=== PATIENT | female | born 1945 | race Two or more races ===

== ENCOUNTER → 2024-05-03 | Outpatient (CLI) | payer MEDICARE, MEDICAID, SELFPAY ==
--- NOTE | 2024-05-03 12:30 | XR_ITS ---
EXAMINATION: PET/CT FUSION SKULL TO THIGH EXAM DATE AND TIME: May 03, 2024 1312 hours Comparison October 20, 2023 INDICATIONS: Diagnosis malignant neoplasm of bronchus or lung restaging post treatment CTDI:vol (mGy) 5.01 DLP: (mGycm) 395.05 PROCEDURE: 15.7 mCi FDG was administered intravenously To allow for distribution and uptake of radiotracer, the patient was allowed to rest quietly in a shielded room. Imaging was performed on an integrated 16-slice PET/CT scanner, with scanning from the skull base to the mid thigh. Serum blood glucose at the time of the injection was measured 85 mg/dL. CT scanning was performed without oral or intravenous contrast material. FINDINGS: Head and Neck: There is no delroy hypermetabolism in the neck. The visualized portions of the brain are normal in appearance on CT. Chest: Weakly hypermetabolic pulmonary nodule posterior right lung 36 x 26 mm compared to 34 x 19 mm on October 20, 2023 Abdomen and Pelvis: There is no delroy hypermetabolism in retroperitoneal or pelvic chains. The spleen is normal in size and FDG avidity. Musculoskeletal: Marrow uptake is within normal range. IMPRESSION: Interval enlargement of pulmonary nodule right lower lobe, currently 36 x 26 mm compared to 34 x 19 mm on October 20, 2023
== END | disposition home or self-care (01) ==
LOC: CDIM 11:50
PROVIDERS: PCP Family Medicine; Referring Provider Nurse Practitioner Family; Visit Provider Nurse Practitioner Family
DX: R91.1 Solitary pulmonary nodule (principal); C34.90 Malignant neoplasm of unspecified part of unspecified bronchus or lung
CPT/HCPCS: 78815; A9552

== ENCOUNTER → 2024-08-01 | Outpatient (CLI) | payer MEDICARE, MEDICAID, SELFPAY ==
--- NOTE | 2024-08-01 16:21 | XR_ITS ---
Examination: PA lateral chest 2 views TECHNIQUE: Upright PA lateral chest 2 views Exam date and time: August 01, 2024 1653 hours Comparison December 26, 2023 INDICATIONS: Difficulty breathing this week, diagnosis malignant neoplasm bronchus or lung restaging FINDINGS: Poorly defined mass in the posterior right lung, please see the PET/CT scan report May 03, 2024 indicating 36 mm pulmonary mass in the right lower lobe 13 mm nodule left base retrocardiac Mild prominence left ventricle Elevation left hemidiaphragm Possible mild to moderate posterior right pleural fluid IMPRESSION: Pulmonary masses as above Suspicious for mild to moderate right pleural fluid
== END | disposition home or self-care (01) ==
LOC: CDIM 16:10
PROVIDERS: PCP Nurse Practitioner Family; Referring Provider Thoracic Surgery (Cardiothoracic Vascular Surgery); Visit Provider Thoracic Surgery (Cardiothoracic Vascular Surgery)
DX: R91.8 Other nonspecific abnormal finding of lung field (principal); C34.90 Malignant neoplasm of unspecified part of unspecified bronchus or lung
CPT/HCPCS: 71046

== ENCOUNTER → 2024-09-21 | Outpatient (CLI) | payer MEDICARE, MEDICAID, SELFPAY ==
--- NOTE | 2024-09-21 | XR_ITS ---
Examination: PA lateral chest 2 views Technique: Upright PA lateral chest 2 views Exam date and time: September 21, 2024 1218 hrs. Comparison August 01, 2024 Indications: Coughing beginning one month ago. Findings: Mild prominence left ventricle Moderate right pleural fluid Mild pneumonia right base Impression: Moderate right pleural fluid Mild pneumonia right base
== END | disposition home or self-care (01) ==
LOC: CDIM 11:51
PROVIDERS: PCP Nurse Practitioner Family; Referring Provider Nurse Practitioner Family; Visit Provider Nurse Practitioner Family
DX: J18.9 Pneumonia, unspecified organism (principal); R05.3 Chronic cough
CPT/HCPCS: 71046

== ENCOUNTER → 2024-10-11 | Outpatient (CLI) | payer MEDICARE, MEDICAID, SELFPAY ==
--- NOTE | 2024-10-11 13:17 | XR_ITS ---
Examination: PA lateral chest 2 views TECHNIQUE: Upright PA lateral chest 2 views Exam date and time: October 11, 2024 1322 hours Comparison September 21, 2024 INDICATIONS: Status post surgery right lung October 15, 2024 with pneumonia right lung history FINDINGS: No significant cardiac enlargement Ectatic thoracic aorta Stable right pleural disease No definite pneumonia on the current examination IMPRESSION: Stable right pleural disease, no pneumonia currently identified
== END | disposition home or self-care (01) ==
PROVIDERS: PCP Nurse Practitioner Family; Referring Provider Nurse Practitioner Family; Visit Provider Nurse Practitioner Family
DX: R91.8 Other nonspecific abnormal finding of lung field (principal)
CPT/HCPCS: 71046

== ENCOUNTER 2025-01-08 08:48 | Outpatient (RCR) | payer MEDICARE, MEDICAID, SELFPAY ==
--- NOTE | 2025-01-08 11:01 | CTCCONSULT_ITS ---
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 The patient's largest tumor size was 4.2 centimeters, with 23 lymph nodes removed, all of which were negative. 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 The patient reports experiencing cramps, which she had prior to surgery. These cramps initially subsided after the operation but have now returned. She denies receiving any additional treatment following her surgery due to insurance delays. The patient was unable to see an oncologist previously because of insurance issues, which led to significant delays in her cancer care. Despite being advised that she needed treatment, the specifics were not explained to her. The patient expresses concern about her symptoms and the impact of delayed care on her cancer progression. Review of Systems Gastrointestinal: Positive for cramps. 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 hydrocodone-acetaminophen - 5-325 mg 1 tab Every 6 Hours 2. lidocaine - 5 % 1 Patch Daily 3. rosuvastatin - 20 mg 1 tab Every day before sleep 4. Vitamin D2 - 1,250 mcg (50,000 unit) 1 Capsule Weekly Medications Last Reconciled by Siobhan Zarate RN on 01/08/2025 ALLERGIES: No Known Drug Allergies REVIEW OF SYSTEMS: A complete 14-point review of systems was performed and is negative except as noted in interval history. PHYSICAL EXAMINATION: VITAL SIGNS: Temperature?98.6, B/P?154/84, Height?59?inches, Oxygen?Saturation?95% Weight?136?lbs PAIN: 3 - Between mild and moderate pain GENERAL APPEARANCE: Appears well, in no apparent distress, appropriately interactive. HEENT: Normocephalic, no temporal wasting, normal conjunctiva, no scleral icterus, normal hearing, lips without lesions, neck normal range of motion. CARDIOVASCULAR: Not assessed. PULMONARY: Normal respiratory effort, no respiratory distress or use of accessory muscles, speaking in full sentences, no tachypnea. EXTREMITIES: No pedal edema or cyanosis. SKIN: Normal skin appearance. NEUROLOGIC: Alert and oriented x4. PSHYCHIATRIC: Appropriate affect, mood normal, behavior normal, intact thought and speech. LABORATORY DATA: I have personally reviewed and interpreted each of the patient?s relevant lab tests, abnormal findings are below: Date ASSESSMENT/PLAN: Carmine Dallas, female patient with stage 2 lung cancer ([id number]), status post right thoracotomy and right lower lobectomy with lymph node dissection, presenting for oncology evaluation and treatment planning. Stage 2 Lung Cancer ([id number]) Assessment: Patient has stage 2 lung cancer, with the largest tumor measuring 4.2 cm. Pathology revealed a mixed histology, with 80% adenocarcinoma and a small component of invasive squamous cell carcinoma. Right thoracotomy with right lower lobectomy and lymph node dissection was performed. All 23 lymph nodes removed were negative for malignancy. However, positive surgical margins were noted, indicating potential residual disease. The patient experienced significant delays in care due to insurance issues, which may have allowed for tumor growth. Given the tumor size >4 cm, positive margins, and high risk of recurrence, adjuvant therapy is warranted. Plan: - Initiate adjuvant chemotherapy and immunotherapy - Gemcitabine (Gemzar) chemotherapy for 4 cycles - Administer every 2 weeks initially, then every 3 weeks - Follow with Pembrolizumab (Keytruda) immunotherapy - Administer every 3 weeks or every 6 weeks (once a month) - Provide pre-medication for nausea and vomiting prevention - Monitor for side effects and manage symptomatically - Perform regular blood tests during treatment - Educate patient on treatment schedule, potential side effects, and importance of reporting symptoms - Schedule follow-up visits with oncology team Abdominal Cramps Assessment: Patient reports experiencing abdominal cramps, which were present before surgery, resolved temporarily post-operatively, and have now recurred. The etiology of these cramps is unclear and may be related to the underlying malignancy or a separate gastrointestinal issue. Plan: - Monitor cramps during cancer treatment - Assess for any correlation with chemotherapy administration - Consider further evaluation if symptoms persist or worsen ORDERS: Order # Description [id number] Infusion 6 Hours [id number] Follow Up 4 Week + Comprehensive Metabolic Panel - 12 + CBC with Auto Diff [id number] CBC + Comprehensive Metabolic Panel + [facility] [id number] Lab Appointment [id number] Follow Up Appointment [id number] Infusion 6 Hours [id number] CBC + Comprehensive Metabolic Panel + [facility] [id number] Lab Appointment [id number] Follow Up Appointment [id number] Infusion 6 Hours [id number] CBC + Comprehensive Metabolic Panel + [facility] [id number] Lab Appointment [id number] Follow Up Appointment [id number] Infusion 6 Hours [id number] CBC + Comprehensive Metabolic Panel + [facility] [id number] Lab Appointment [id number] Follow Up Appointment [id number] Infusion 6 Hours [id number] CBC + Comprehensive Metabolic Panel + [facility] [id number] Lab Appointment [id number] Follow Up Appointment [id number] Infusion 6 Hours [id number] CBC + Comprehensive Metabolic Panel + [facility] [id number] Lab Appointment [id number] Follow Up Appointment [id number] Infusion 6 Hours [id number] CBC + Comprehensive Metabolic Panel + [facility] [id number] Lab Appointment [id number] Follow Up Appointment [id number] Infusion 6 Hours [id number] CBC + Comprehensive Metabolic Panel + [facility] [id number] Lab Appointment [id number] Follow Up Appointment [id number] Infusion 6 Hours [id number] CBC + Comprehensive Metabolic Panel + [facility] [id number] Lab Appointment [id number] Follow Up Appointment MD [id number] Infusion 6 Hours [id number] CBC + Comprehensive Metabolic Panel + [facility] [id number] Lab Appointment [id number] Follow Up Appointment MD [id number] Infusion 6 Hours [id number] CBC + Comprehensive Metabolic Panel + [facility] [id number] Lab Appointment [id number] Follow Up Appointment MD [id number] Infusion 6 Hours [id number] CBC + Comprehensive Metabolic Panel + [facility] [id number] Lab Appointment [id number] Follow Up Appointment MD [id number] Infusion 6 Hours [id number] CBC + Comprehensive Metabolic Panel + [facility] [id number] Lab Appointment [id number] Follow Up Appointment MD [id number] Infusion 6 Hours [id number] CBC + Comprehensive Metabolic Panel + [facility] [id number] Lab Appointment [id number] Follow Up Appointment MD [id number] Infusion 6 Hours [id number] CBC + Comprehensive Metabolic Panel + [facility] [id number] Lab Appointment [id number] Follow Up Appointment MD [id number] Infusion 6 Hours [id number] CBC + Comprehensive Metabolic Panel + [facility] [id number] Lab Appointment [id number] Follow Up Appointment MD [id number] Infusion 6 Hours [id number] CBC + Comprehensive Metabolic Panel + [facility] [id number] Lab Appointment [id number] Follow Up Appointment RETURN TO CLINIC: I reviewed the diagnosis, prognosis, and recommended treatment/procedure options with the patient (and/or their legal community health representative), including the potential benefits, risks, side effects and alternative therapies. We also discussed the option of no treatment and the possibility of clinical trial participation, if applicable. All questions were addressed, and they demonstrated understanding. They provided informed consent to proceed with the proposed plan of care. BILLING AND COMPLIANCE: I reviewed external records from providers outside my specialty as summarized above. I spent a total of 50 minutes on this patient?s care on the day of their visit excluding time spent related to any billed procedures. This time includes time spent with the patient as well as time spent documenting in the medical record, reviewing patients records and tests, obtaining history, placing orders, communicating with other healthcare professionals, counseling the patient, family or caregiver, and/or care coordination for the diagnoses above. Electronically Signed by: Dewayne Kuhn MD T: 10:59 AM CC: PCP: Referring: Heather Ruiz This document was completed utilizing speech recognition software. Grammatical errors, random word insertions, pronoun errors, and incomplete sentences are an occasional consequence of this system due to software limitations, ambient noise, and hardware issues. Any formal questions or concerns about the content, text or information contained within the body of this dictation should be directly addressed to the provider for clarification.
== END 2025-01-10 23:59 | disposition home or self-care (01) ==
LOC: SCTC 08:48
PROVIDERS: PCP Nurse Practitioner Family; Referring Provider Nurse Practitioner Family; Visit Provider Internal Medicine Hematology & Oncology
DX: C34.31 Malignant neoplasm of lower lobe, right bronchus or lung (principal); Z90.2 Acquired absence of lung [part of]; R10.9 Unspecified abdominal pain
CPT/HCPCS: 99213; G0463

== ENCOUNTER 2025-01-18 10:22 | Outpatient (RCR) | payer MEDICARE, MEDICAID, SELFPAY | END 2025-02-10 23:59 | disposition home or self-care (01) | LOC: SCTC 10:22 | PROVIDERS: PCP Nurse Practitioner Family; Referring Provider Nurse Practitioner Family; Visit Provider Internal Medicine Hematology & Oncology | DX: C34.90 Malignant neoplasm of unspecified part of unspecified bronchus or lung (principal); Z90.2 Acquired absence of lung [part of] ==

== ENCOUNTER 2025-01-24 08:50 | Outpatient (CLI) | payer MEDICARE, MEDICAID, SELFPAY ==
[2025-01-23 15:33] LABS: Basophils # (Auto) 0.1 Thou/mm3 (0.0-0.2); Basophils % (Auto) 1 % (0-2.5); Eosinophils # (Auto) 0.4 Thou/mm3 (0.0-0.5); Eosinophils % (Auto) 5 % (0-10); Hematocrit 38.8 % (36.0-46.0); Hemoglobin 13.2 g/dL (12.0-16.0); Immature Granulocytes Auto 0.03 Thou/mm3 (0.00-0.00); Lymphocytes # (Auto) 1.9 Thou/mm3 (1.0-4.8); Lymphocytes % (Auto) 27 % (10-50); Mean Corpuscular HGB Conc 34.0 g/dl (31.0-37.0); Mean Corpuscular Hemoglobin 31.1 pg (25.0-35.0); Mean Corpuscular Volume 92 fL (80-100); Monocytes # (Auto) 0.6 Thou/mm3 (0.0-0.8); Monocytes % (Auto) 8 % (0-12); Neutrophils # (Auto) 4.1 Thou/mm3 (1.8-7.7); Neutrophils % (Auto) 59 % (37-80); Nucleated Red Blood Cell # 0.00 Thou/mm3 (0.00-0.00); Nucleated Red Blood Cell % 0 /100 WBC (0); Platelet Count 292 Thou/mm3 (140-440); RDW Standard Deviation 44.7 fL (36.4-46.3); Red Blood Count 4.24 Miln/mm3 (4.00-5.20); White Blood Count 7.1 Thou/mm3 (3.6-11.0)
[2025-01-23 18:26] LABS: INR 1.0 (0.9-1.3); Partial Thromboplastin Time 27.9 Seconds (22.0-36.0); Prothrombin Time 10.8 Seconds (9.0-12.2)
[2025-01-24] VITALS (17 sets, daily range): BP systolic 124–188; BP diastolic 74–100; PULSE 65–88; RESP 12–22; TEMP 36.7–37; O2SAT 93–100; BMI 29.0
--- NOTE | 2025-01-24 09:00 | PC.NURSE ---
consulted dr coffey regarding order for port placement, patient took aspirin 01/22/2025 , also reviewed current coagulation lab results, patient ate light breakfast 1/2 cup coffe, 1/4 piece of bread. ok to proceed with scheduled procedure.
--- NOTE | 2025-01-24 09:30 | XR_ITS ---
Examination: IR venous implantation Port-A-Cath Ultrasound-guided needle placement right internal jugular vein. Fluoroscopy AP Chest, portable single view Exam date and time: January 24, 2025 0938 hours INDICATIONS: Diagnosis lung cancer, need for long-term intravenous chemotherapy. Informed consent provided Technique: A timeout was completed, verifying correct patient, procedure, site, positioning, and special equipment if applicable The patient was placed in a dependent position appropriate for central line placement based on the vein to be cannulated. The patient's right neck was prepped and draped in sterile fashion. Maximum Sterile Barrier Technique used including cap, mask, sterile gown, sterile gloves, and sterile full body drape. If ultrasound technique used: sterile gel and sterile probe covers. Hand Hygiene performed using proper scrub, soap and water, or alcohol-based hand rub. Site right portable apparatus utilized to confirm patency of the right internal jugular vein Utilizing ultrasonographic guidance successful 21-gauge needle puncture into the right internal jugular vein Ultrasound images were recorded and stored. Successful micropuncture with a 21-gauge needle was performed. 0.18 wire guide was introduced into the IVC under fluoroscopic guidance. Utilizing blunt dissection, subcutaneous pocket formed in the upright chest with the Port-A-Cath reservoir Port-A-Cath reservoir connected to a 8 [place] Port-A-Cath line, 21 cm, placed through a venous sheath into the superior vena cava in satisfactory position Perfusion to the extremity distal to the point of catheter insertion was checked and found to be adequate The attending radiologist was present for the entire procedure Estimated blood loss 4 cc Findings: Under fluoroscopy, the tip of the Port-A-Cath is in good position in the vena cava. Portable chest x-ray, post Port-A-Cath placement, as ordered. Impression: Successful ultrasound-guided needle placement right internal jugular vein. Successful IR venous implantation Port-A-Cath Fluoroscopy 0.1 minute radiation dose 1.91 milligray 1 spot fluoroscopic chest film. AP portable chest completion procedure demonstrates satisfactory position Port-A-Cath tip SVC. May use Port-A-Cath
[2025-01-24] MEDS: SODIUM CHLORIDE 0.9% 500 ML 500 ML 20 ML IV (09:55)
[2025-01-24] MEDS: ceFAZolin/D5W 1 GM IVPB 1 GM/50 ML BAG IV (10:05)
[2025-01-24] MEDS: HEPARIN SOD LOCK SYR 100 UNIT/ML 500 UNIT STFIELD (10:10)
[2025-01-24] MEDS: fentaNYL CIT INJ 50 mCg/ML AMP 2ML 75 MCG IVP (10:41)
[2025-01-24] MEDS: LIDOCAINE 1% W/EPI 1:100K 20 ML VIAL 7 ML INFL (10:43)
[2025-01-24] MEDS: LIDOCAINE INJ PF 1% 30 ML VIAL 9 ML INFL (10:43)
--- NOTE | 2025-01-24 12:38 | PC.NURSE ---
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 1235 patiet is awake, alert, breathing unlabored, able to tolerate fluids with no nausea or vomiting, discharge instructions given via guest advisor Delon LOPEZ, patient discharged home in wheelchair with all belongings.
== END 2025-01-24 12:35 | disposition home or self-care (01) ==
PROVIDERS: Radiology Diagnostic Radiology; PCP Nurse Practitioner Family; Referring Provider Internal Medicine Hematology & Oncology; Visit Provider Internal Medicine Hematology & Oncology
DX: C34.90 Malignant neoplasm of unspecified part of unspecified bronchus or lung (principal)
CPT/HCPCS: 36558; 36415; 76937; 77001; 85025; 85610; 85730; 99152; 99153; C1769; C1788; C1894; J0689; J0690; J1642; J3010; J3490; J7050; J7999

== ENCOUNTER 2025-03-06 07:04 | Outpatient (RCR) | payer MEDICARE, MEDICAID, SELFPAY ==
[2025-02-12 16:11] LABS: Basophils # (Auto) 0.1 Thou/mm3 (0.0-0.2); Basophils % (Auto) 1 % (0-2.5); Eosinophils # (Auto) 0.3 Thou/mm3 (0.0-0.5); Eosinophils % (Auto) 5 % (0-10); Hematocrit 39.5 % (36.0-46.0); Hemoglobin 13.4 g/dL (12.0-16.0); Immature Granulocytes Auto 0.03 Thou/mm3 (0.00-0.00); Lymphocytes # (Auto) 2.4 Thou/mm3 (1.0-4.8); Lymphocytes % (Auto) 34 % (10-50); Mean Corpuscular HGB Conc 33.9 g/dl (31.0-37.0); Mean Corpuscular Hemoglobin 30.8 pg (25.0-35.0); Mean Corpuscular Volume 91 fL (80-100); Monocytes # (Auto) 0.5 Thou/mm3 (0.0-0.8); Monocytes % (Auto) 7 % (0-12); Neutrophils # (Auto) 3.7 Thou/mm3 (1.8-7.7); Neutrophils % (Auto) 52 % (37-80); Nucleated Red Blood Cell # 0.00 Thou/mm3 (0.00-0.00); Nucleated Red Blood Cell % 0 /100 WBC (0); Platelet Count 272 Thou/mm3 (140-440); RDW Standard Deviation 43.5 fL (36.4-46.3); Red Blood Count 4.35 Miln/mm3 (4.00-5.20); White Blood Count 7.0 Thou/mm3 (3.6-11.0)
[2025-02-12 16:43] LABS: Alanine Aminotransferase 15 U/L (10-49); Albumin, Serum 4.4 gm/dL (3.4-4.8); Albumin/Globulin Ratio 1.7 (1.2-2.2); Alkaline Phosphatase 103 U/L (46-116); Anion Gap 12 (7-16); Aspartate Amino Transferase 26 U/L (0-34); BUN/Creatinine Ratio 16 Ratio (12-20); Bilirubin,Total 0.5 mg/dL (0.3-1.2); Blood Urea Nitrogen 13 mg/dL (9-23); Calcium 10.0 mg/dL (8.3-10.6); Calcium (Corrected) 10.0 mg/dL (8.5-10.1); Carbon Dioxide 24.1 mMol/L (20.0-31.0); Carcinoembryonic Antigen 3.6 ng/mL (0.0-5.0); Chloride 108 mMol/L (98-107); Creatinine (Component) 0.8 mg/dL (0.6-1.3); Free T4 (Free Thyroxine) 0.83 ng/dL (0.89-1.76); Globulin 2.6 gm/dL (2.3-3.5); Glucose 94 mg/dL (74-106); Magnesium 2.0 mg/dL (1.6-2.6); Osmolality,Calculated 286 (275-295); Potassium 3.9 mMol/L (3.4-5.1); Sodium 144 mMol/L (136-145); Thyroid Stimulating Hormone 5.08 uIU/mL (0.55-4.78); Total Protein 7.0 gm/dL (5.7-8.2); eGFR > 60 See Note
[2025-02-18 16:13] LABS: Basophils # (Auto) 0.0 Thou/mm3 (0.0-0.2); Basophils % (Auto) 1 % (0-2.5); Eosinophils # (Auto) 0.1 Thou/mm3 (0.0-0.5); Eosinophils % (Auto) 2 % (0-10); Hematocrit 40.2 % (36.0-46.0); Hemoglobin 13.7 g/dL (12.0-16.0); Immature Granulocytes Auto 0.01 Thou/mm3 (0.00-0.00); Lymphocytes # (Auto) 1.9 Thou/mm3 (1.0-4.8); Lymphocytes % (Auto) 38 % (10-50); Mean Corpuscular HGB Conc 34.1 g/dl (31.0-37.0); Mean Corpuscular Hemoglobin 30.8 pg (25.0-35.0); Mean Corpuscular Volume 90 fL (80-100); Monocytes # (Auto) 0.1 Thou/mm3 (0.0-0.8); Monocytes % (Auto) 2 % (0-12); Neutrophils # (Auto) 2.9 Thou/mm3 (1.8-7.7); Neutrophils % (Auto) 57 % (37-80); Nucleated Red Blood Cell # 0.00 Thou/mm3 (0.00-0.00); Nucleated Red Blood Cell % 0 /100 WBC (0); Platelet Count 269 Thou/mm3 (140-440); RDW Standard Deviation 42.2 fL (36.4-46.3); Red Blood Count 4.45 Miln/mm3 (4.00-5.20); White Blood Count 5.1 Thou/mm3 (3.6-11.0)
[2025-02-18 16:39] LABS: Alanine Aminotransferase 68 U/L (10-49); Albumin, Serum 4.5 gm/dL (3.4-4.8); Albumin/Globulin Ratio 1.7 (1.2-2.2); Alkaline Phosphatase 95 U/L (46-116); Anion Gap 14 (7-16); Aspartate Amino Transferase 41 U/L (0-34); BUN/Creatinine Ratio 16 Ratio (12-20); Bilirubin,Total 0.7 mg/dL (0.3-1.2); Blood Urea Nitrogen 11 mg/dL (9-23); Calcium 9.8 mg/dL (8.3-10.6); Calcium (Corrected) 9.8 mg/dL (8.5-10.1); Carbon Dioxide 23.6 mMol/L (20.0-31.0); Chloride 100 mMol/L (98-107); Creatinine (Component) 0.7 mg/dL (0.6-1.3); Globulin 2.7 gm/dL (2.3-3.5); Glucose 85 mg/dL (74-106); Osmolality,Calculated 274 (275-295); Potassium 3.7 mMol/L (3.4-5.1); Sodium 138 mMol/L (136-145); Total Protein 7.2 gm/dL (5.7-8.2); eGFR > 60 See Note
--- NOTE | 2025-02-19 15:21 | CTCFLWUP_ITS ---
Patient: CELENA BARNETT : 1945 Page 3 of 5 FOLLOW UP NOTE DATE OF SERVICE: 02/19/2025 NAME: CELENA BARNETT ACCOUNT: [id number] : 1945 AGE: 79 INTERVAL HISTORY: Patient is complaining of fatigue . she also had diarrhea . 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 DATE OF DIAGNOSIS: 07/18/2024 STAGE/TNM: IIA T2b N0 [id number] 2 [id number] TREATMENT HISTORY: Care?Plan Start?Date Cycle Day Intent [place]?671?NSC?squamous?bettye?oper?Pembro,?Gemcit,?Cisplatin 02/13/2025 1 21 Curative?(adjuvant) [place]?671?NSC?squamous?bettye?oper?Pembro,?Gemcit,?Cisplatin 01/29/202507 03 Curative?(adjuvant) HISTORY OF PRESENT ILLNESS: Subjective: Chief Complaint Cramps, delayed cancer treatment due to insurance issues History of Present Illness Carmine Dallas presents with a history of lung cancer, status post right thoracotomy with right lower lobectomy and lymph node dissection. The patient's largest tumor size was 4.2 centimeters, with 23 lymph nodes removed, all of which were negative. Her cancer is classified as stage 2 ([id number]), primarily adenocarcinoma (80%) with a small component of invasive squamous cell cancer. The patient reports experiencing cramps, which she had prior to surgery. These cramps initially subsided after the operation but have now returned. She denies receiving any additional treatment following her surgery due to insurance delays. The patient was unable to see an oncologist previously because of insurance issues, which led to significant delays in her cancer care. Despite being advised that she needed treatment, the specifics were not explained to her. The patient expresses concern about her symptoms and the impact of delayed care on her cancer progression. Review of Systems Gastrointestinal: Positive for cramps. Objective: Laboratory, Imaging, and Diagnostic Test Results - Surgical pathology: - Right thoracotomy, right lower lobectomy, lymph node dissection - Largest tumor size: 4.2 centimeters - Lymph nodes: 23 removed, all negative - Histology: 80% adenocarcinoma, small component of invasive squamous cell cancer - Margins: Positive - Staging: [id number], Stage 2 OTHER MEDICAL HISTORY/CONDITIONS: Invasive adenocarcinoma right lung- Dx 08/04/23 Hyperlipidemia Hypothyroid TIA Osteoarthritis Right thoracotomy; right lower lobe lobectomy, mediastinal lymph node idssection and cyroablation of intercostal nerves - [facility] - 07/18/2024 HUA; [facility] - 30 yrs ago FAMILY HISTORY: Mother:?unknown?cancer?-?dx?age?78 SOCIAL HISTORY: Occupational?History:?Retired Education?Level:?Completed something less than 8th grade Marital?Status:?Single Tobacco?Use:?Denies ETOH?Use:?Denies Drug?Note:?Denies Social History Note:?Lives with grandson [employer] HISTORY: Menarche?-?Age:?16 Menopause:?42 :?13 Live?Births:?12 Age?1st?:?17 Gynecological?Note:?1?miscarriage MEDICATIONS: 1. Compazine - 5 mg 5 mg Daily 2. hydrocodone-acetaminophen - 5-325 mg 1 tab Every 6 Hours 3. lidocaine - 5 % 1 Patch Daily 4. ondansetron - 8 mg 1 tab every 8 hrs as needed for nasuea 5. rosuvastatin - 20 mg 1 tab Every day before sleep 6. Vitamin D2 - 1,250 mcg (50,000 unit) 1 Capsule Weekly Medications Last Reconciled by Karishma Gibson MD on 02/19/2025 ALLERGIES: No Known Drug Allergies REVIEW OF SYSTEMS: A complete 14-point review of systems was performed and is negative except as noted in interval history. PHYSICAL EXAMINATION: VITAL SIGNS: Temperature?98.3, B/P?134/85, Oxygen?Saturation?95% Weight?129?lbs (Change?since?02/18/25:?0?lbs) PAIN: 0 - No pain ECOG Performance Status: 0 - Asymptomatic and fully active GENERAL APPEARANCE: Appears well, in no apparent distress, appropriately interactive. HEENT: Normocephalic, no temporal wasting, normal conjunctiva, no scleral icterus, normal hearing, lips without lesions, neck normal range of motion. CARDIOVASCULAR: Not assessed. PULMONARY: Normal respiratory effort, no respiratory distress or use of accessory muscles, speaking in full sentences, no tachypnea. EXTREMITIES: No pedal edema or cyanosis. SKIN: Normal skin appearance. NEUROLOGIC: Alert and oriented x4. PSHYCHIATRIC: Appropriate affect, mood normal, behavior normal, intact thought and speech. LABORATORY DATA: I have personally reviewed and interpreted each of the patient?s relevant lab tests, abnormal findings are below: Date 02/12/25 02/18/25 ??WHITE?BLOOD?COUNT?(Thou/mm3) 7.0 5.1 ??RED?BLOOD?COUNT?(Miln/mm3) 4.35 4.45 ??HEMOGLOBIN?(gm/dl) 13.4 13.7 ??HEMATOCRIT?(%) 39.5 40.2 ??PLATELET?COUNT?(Thou/mm3) 272 269 ??NEUTROPHILS?%,?AUTO?(%) 52 57 ??LYMPH?%,?AUTO?(%) 34 38 ??NEUTROPHILS,?AUTO?(Thou/mm3) 3.7 2.9 ??GLUCOSE,RANDOM?(mg/dL) ? 85 ??BLOOD?UREA?NITROGEN?(mg/dL) ? 11 ??CREATININE?(mg/dL) ? 0.70 ??SODIUM?(mmol/L) ? 138 ??POTASSIUM?(mmol/L) ? 3.7 ??CHLORIDE?(mmol/L) ? 100 ??CrCl?(CandG)?(ml/min) ? 62.17 ??AST/SGOT?(Unit/L) ? 41?H ??ALT/SGPT?(Unit/L) ? 68?H ??ALKALINE?PHOSPHATASE?(Unit/L) ? 95 ??BILIRUBIN,?TOTAL?(mg/dL) ? 0.7 ??PROTEIN?TOTAL?(gm/dl) ? 7.2 ??ALBUMIN,?SERUM?(gm/dl) ? 4.5 ??GLOBULIN?(gm/dl) ? 2.7 ??ALBUMIN/GLOBULIN?RATIO ? 1.7 ??CALCIUM,?SERUM?(mg/dL) ? 9.8 ??CALCIUM?SERUM?(CORRECTED)?(mg/dL) ? 9.8 ??CEA?(O*)?(ng/ml) 3.6 ? ASSESSMENT/PLAN: Carmine Arandatina, female patient with stage 2 lung cancer ([id number]), status post right thoracotomy and right lower lobectomy with lymph node dissection, presenting for oncology evaluation and treatment planning. Stage 2 Lung Cancer ([id number]) Assessment: Patient has stage 2 lung cancer, with the largest tumor measuring 4.2 cm. Pathology revealed a mixed histology, with 80% adenocarcinoma and a small component of invasive squamous cell carcinoma. Right thoracotomy with right lower lobectomy and lymph node dissection was performed. All 23 lymph nodes removed were negative for malignancy. However, positive surgical margins were noted, indicating potential residual disease. The patient experienced significant delays in care due to insurance issues, which may have allowed for tumor growth. Given the tumor size >4 cm, positive margins, and high risk of recurrence, adjuvant therapy is warranted. adjuvant chemotherapy and immunotherapy - Gemcitabine (Gemzar) /cisplatin chemotherapy for 4 cycles - Administer every 2 weeks initially, then every 3 weeks - Follow with Pembrolizumab (Keytruda) immunotherapy - Administer every 3 weeks or every 6 weeks (once a month) - Provide pre-medication for nausea and vomiting prevention - Monitor for side effects and manage symptomatically - Perform regular blood tests during treatment - Educate patient on treatment schedule, potential side effects, and importance of reporting symptoms - Schedule follow-up visits with oncology team - stopped day 8 gemcitabine Abdominal Cramps Assessment: Patient reports experiencing abdominal cramps, which were present before surgery, resolved temporarily post-operatively, and have now recurred. The etiology of these cramps is unclear and may be related to the underlying malignancy or a separate gastrointestinal issue. Plan: - Monitor cramps during cancer treatment - Assess for any correlation with chemotherapy administration - Consider further evaluation if symptoms persist or worsen ORDERS: Order # Description [id number] CT Scan + Chest + Abdomen and Pelvis + With Contrast [id number] MRI + With Contrast [id number] Infusion 6 Hours [id number] RETURN TO CLINIC: I reviewed the diagnosis, prognosis, and recommended treatment/procedure options with the patient (and/or their legal financial services sales representative), including the potential benefits, risks, side effects and alternative therapies. We also discussed the option of no treatment and the possibility of clinical trial participation, if applicable. All questions were addressed, and they demonstrated understanding. They provided informed consent to proceed with the proposed plan of care. BILLING AND COMPLIANCE: I reviewed external records from providers outside my specialty as summarized above. I spent a total of 50 minutes on this patient?s care on the day of their visit excluding time spent related to any billed procedures. This time includes time spent with the patient as well as time spent documenting in the medical record, reviewing patients records and tests, obtaining history, placing orders, communicating with other healthcare professionals, counseling the patient, family or caregiver, and/or care coordination for the diagnoses above. Electronically Signed by: Dewayne Kuhn MD T: 3:19 PM CC: PCP: Referring: Dewayne Kuhn This document was completed utilizing speech recognition software. Grammatical errors, random word insertions, pronoun errors, and incomplete sentences are an occasional consequence of this system due to software limitations, ambient noise, and hardware issues. Any formal questions or concerns about the content, text or information contained within the body of this dictation should be directly addressed to the provider for clarification.
[2025-03-05 15:44] LABS: Basophils # (Auto) 0.1 Thou/mm3 (0.0-0.2); Basophils % (Auto) 1 % (0-2.5); Eosinophils # (Auto) 0.2 Thou/mm3 (0.0-0.5); Eosinophils % (Auto) 5 % (0-10); Hematocrit 38.5 % (36.0-46.0); Hemoglobin 13.0 g/dL (12.0-16.0); Immature Granulocytes Auto 0.03 Thou/mm3 (0.00-0.00); Lymphocytes # (Auto) 1.5 Thou/mm3 (1.0-4.8); Lymphocytes % (Auto) 40 % (10-50); Mean Corpuscular HGB Conc 33.8 g/dl (31.0-37.0); Mean Corpuscular Hemoglobin 30.4 pg (25.0-35.0); Mean Corpuscular Volume 90 fL (80-100); Monocytes # (Auto) 0.7 Thou/mm3 (0.0-0.8); Monocytes % (Auto) 17 % (0-12); Neutrophils # (Auto) 1.4 Thou/mm3 (1.8-7.7); Neutrophils % (Auto) 36 % (37-80); Nucleated Red Blood Cell # 0.00 Thou/mm3 (0.00-0.00); Nucleated Red Blood Cell % 0 /100 WBC (0); Platelet Count 434 Thou/mm3 (140-440); RDW Standard Deviation 44.5 fL (36.4-46.3); Red Blood Count 4.28 Miln/mm3 (4.00-5.20); White Blood Count 3.9 Thou/mm3 (3.6-11.0)
[2025-03-05 16:05] LABS: Magnesium 2.0 mg/dL (1.6-2.6)
[2025-03-05 16:10] LABS: Alanine Aminotransferase 18 U/L (10-49); Albumin, Serum 4.2 gm/dL (3.4-4.8); Albumin/Globulin Ratio 1.7 (1.2-2.2); Alkaline Phosphatase 94 U/L (46-116); Anion Gap 11 (7-16); Aspartate Amino Transferase 30 U/L (0-34); BUN/Creatinine Ratio 10 Ratio (12-20); Bilirubin,Total 0.3 mg/dL (0.3-1.2); Blood Urea Nitrogen 7 mg/dL (9-23); Calcium 9.4 mg/dL (8.3-10.6); Calcium (Corrected) 9.4 mg/dL (8.5-10.1); Carbon Dioxide 25.4 mMol/L (20.0-31.0); Chloride 108 mMol/L (98-107); Creatinine (Component) 0.7 mg/dL (0.6-1.3); Free T4 (Free Thyroxine) 0.89 ng/dL (0.89-1.76); Globulin 2.5 gm/dL (2.3-3.5); Glucose 87 mg/dL (74-106); Osmolality,Calculated 283 (275-295); Potassium 3.6 mMol/L (3.4-5.1); Sodium 144 mMol/L (136-145); Thyroid Stimulating Hormone 4.12 uIU/mL (0.55-4.78); Total Protein 6.7 gm/dL (5.7-8.2); eGFR > 60 See Note
[2025-03-05 16:15] LABS: Carcinoembryonic Antigen 3.0 ng/mL (0.0-5.0)
== END 2025-03-12 23:59 | disposition home or self-care (01) ==
LOC: SCTC 07:04
PROVIDERS: Referring Provider Internal Medicine Hematology & Oncology; Visit Provider Internal Medicine Hematology & Oncology
DX: Z51.11 Encounter for antineoplastic chemotherapy (principal); C34.31 Malignant neoplasm of lower lobe, right bronchus or lung; R10.9 Unspecified abdominal pain; R53.83 Other fatigue; R19.7 Diarrhea, unspecified; Z90.2 Acquired absence of lung [part of]
CPT/HCPCS: 36591; 80053; 82378; 83735; 84439; 84443; 85025; 96367; 96368; 96413; 96415; 96417; 99212; 99424; 99425; A4216; J1100; J1453; J1642; J1938; J2150; J2405; J3475; J3480; J3490; J7030; J7040; J7050; J9060; J9201; J9271; A9270; G0463

== ENCOUNTER 2025-03-27 07:09 | Outpatient (RCR) | payer MEDICARE, MEDICAID, SELFPAY ==
[2025-03-26 14:44] LABS: Basophils # (Auto) 0.1 Thou/mm3 (0.0-0.2); Basophils % (Auto) 1 % (0-2.5); Eosinophils # (Auto) 0.2 Thou/mm3 (0.0-0.5); Eosinophils % (Auto) 5 % (0-10); Hematocrit 39.9 % (36.0-46.0); Hemoglobin 13.3 g/dL (12.0-16.0); Immature Granulocytes Auto 0.03 Thou/mm3 (0.00-0.00); Lymphocytes # (Auto) 1.9 Thou/mm3 (1.0-4.8); Lymphocytes % (Auto) 40 % (10-50); Mean Corpuscular HGB Conc 33.3 g/dl (31.0-37.0); Mean Corpuscular Hemoglobin 30.3 pg (25.0-35.0); Mean Corpuscular Volume 91 fL (80-100); Monocytes # (Auto) 0.6 Thou/mm3 (0.0-0.8); Monocytes % (Auto) 13 % (0-12); Neutrophils # (Auto) 1.9 Thou/mm3 (1.8-7.7); Neutrophils % (Auto) 40 % (37-80); Nucleated Red Blood Cell # 0.00 Thou/mm3 (0.00-0.00); Nucleated Red Blood Cell % 0 /100 WBC (0); Platelet Count 351 Thou/mm3 (140-440); RDW Standard Deviation 49.2 fL (36.4-46.3); Red Blood Count 4.39 Miln/mm3 (4.00-5.20); White Blood Count 4.8 Thou/mm3 (3.6-11.0)
[2025-03-26 15:08] LABS: Magnesium 2.1 mg/dL (1.6-2.6)
[2025-03-26 15:12] LABS: Alanine Aminotransferase 12 U/L (10-49); Albumin, Serum 4.4 gm/dL (3.4-4.8); Albumin/Globulin Ratio 1.8 (1.2-2.2); Alkaline Phosphatase 87 U/L (46-116); Anion Gap 11 (7-16); Aspartate Amino Transferase 27 U/L (0-34); BUN/Creatinine Ratio 12 Ratio (12-20); Bilirubin,Total 0.4 mg/dL (0.3-1.2); Blood Urea Nitrogen 7 mg/dL (9-23); Calcium 9.3 mg/dL (8.3-10.6); Calcium (Corrected) 9.3 mg/dL (8.5-10.1); Carbon Dioxide 25.6 mMol/L (20.0-31.0); Chloride 107 mMol/L (98-107); Creatinine (Component) 0.6 mg/dL (0.6-1.3); Globulin 2.4 gm/dL (2.3-3.5); Glucose 106 mg/dL (74-106); Osmolality,Calculated 284 (275-295); Potassium 3.8 mMol/L (3.4-5.1); Sodium 144 mMol/L (136-145); Thyroid Stimulating Hormone 8.47 uIU/mL (0.55-4.78); Total Protein 6.8 gm/dL (5.7-8.2); eGFR > 60 See Note
[2025-03-26 15:13] LABS: Carcinoembryonic Antigen 3.3 ng/mL (0.0-5.0)
[2025-03-27 08:21] LABS: Free T4 (Free Thyroxine) 0.89 ng/dL (0.89-1.76)
== END 2025-04-12 23:59 | disposition home or self-care (01) ==
LOC: SCTC 07:09
PROVIDERS: PCP Nurse Practitioner Family; Referring Provider Nurse Practitioner Family; Visit Provider Internal Medicine Hematology & Oncology
DX: Z51.11 Encounter for antineoplastic chemotherapy (principal); C34.31 Malignant neoplasm of lower lobe, right bronchus or lung; Z90.2 Acquired absence of lung [part of]
CPT/HCPCS: 36591; 80053; 82378; 83735; 84439; 84443; 85025; 96367; 96368; 96413; 96415; 96417; A4216; J1100; J1434; J1642; J2150; J2405; J3475; J3480; J3490; J7030; J7040; J7050; J9060; J9201; J9271

== ENCOUNTER 2025-05-23 07:12 | Outpatient (RCR) | payer MEDICARE, MEDICAID, SELFPAY ==
[2025-05-22 12:37] LABS: Basophils # (Auto) 0.1 Thou/mm3 (0.0-0.2); Basophils % (Auto) 1 % (0-2.5); Eosinophils # (Auto) 0.1 Thou/mm3 (0.0-0.5); Eosinophils % (Auto) 1 % (0-10); Hematocrit 39.1 % (36.0-46.0); Hemoglobin 13.5 g/dL (12.0-16.0); Immature Granulocytes Auto 0.02 Thou/mm3 (0.00-0.00); Lymphocytes # (Auto) 1.8 Thou/mm3 (1.0-4.8); Lymphocytes % (Auto) 33 % (10-50); Mean Corpuscular HGB Conc 34.5 g/dl (31.0-37.0); Mean Corpuscular Hemoglobin 32.4 pg (25.0-35.0); Mean Corpuscular Volume 94 fL (80-100); Monocytes # (Auto) 0.3 Thou/mm3 (0.0-0.8); Monocytes % (Auto) 6 % (0-12); Neutrophils # (Auto) 3.3 Thou/mm3 (1.8-7.7); Neutrophils % (Auto) 59 % (37-80); Nucleated Red Blood Cell # 0.00 Thou/mm3 (0.00-0.00); Nucleated Red Blood Cell % 0 /100 WBC (0); Platelet Count 247 Thou/mm3 (140-440); RDW Standard Deviation 57.2 fL (36.4-46.3); Red Blood Count 4.17 Miln/mm3 (4.00-5.20); White Blood Count 5.6 Thou/mm3 (3.6-11.0)
[2025-05-22 12:59] LABS: Free T3 0.3 pg/mL (2.3-4.2)
[2025-05-22 13:02] LABS: Alanine Aminotransferase 35 U/L (10-49); Albumin, Serum 4.4 gm/dL (3.4-4.8); Albumin/Globulin Ratio 1.7 (1.2-2.2); Alkaline Phosphatase 63 U/L (46-116); Anion Gap 10 (7-16); Aspartate Amino Transferase 63 U/L (0-34); BUN/Creatinine Ratio 10 Ratio (12-20); Bilirubin,Total 0.7 mg/dL (0.3-1.2); Blood Urea Nitrogen 8 mg/dL (9-23); Calcium 9.4 mg/dL (8.3-10.6); Calcium (Corrected) 9.4 mg/dL (8.5-10.1); Carbon Dioxide 25.7 mMol/L (20.0-31.0); Chloride 106 mMol/L (98-107); Creatinine (Component) 0.8 mg/dL (0.6-1.3); Free T4 (Free Thyroxine) 0.23 ng/dL (0.89-1.76); Globulin 2.6 gm/dL (2.3-3.5); Glucose 90 mg/dL (74-106); Osmolality,Calculated 281 (275-295); Potassium 3.8 mMol/L (3.4-5.1); Sodium 142 mMol/L (136-145); Total Protein 7.0 gm/dL (5.7-8.2); eGFR > 60 See Note
[2025-05-22 14:42] LABS: Thyroid Stimulating Hormone 236.00 uIU/mL (0.55-4.78)
== END 2025-06-12 23:59 | disposition home or self-care (01) ==
LOC: SCTC 07:12
PROVIDERS: PCP Nurse Practitioner Family; Referring Provider Nurse Practitioner Family; Visit Provider Internal Medicine Hematology & Oncology
DX: Z51.12 Encounter for antineoplastic immunotherapy (principal); C34.31 Malignant neoplasm of lower lobe, right bronchus or lung; Z90.2 Acquired absence of lung [part of]
CPT/HCPCS: 36591; 80053; 84439; 84443; 84481; 85025; 96367; 96413; A4216; J1642; J2405; J3490; J9271

== ENCOUNTER → 2025-05-24 | Outpatient (CLI) | payer MEDICARE, MEDICAID, SELFPAY ==
--- NOTE | 2025-05-24 09:43 | XR_ITS ---
Examination: CT chest with intravenous contrast CT abdomen with intravenous contrast CT pelvis with intravenous contrast 2-D coronal and sagittal reconstructions Time of exam: 05/24/2025 at 11:08 a.m. Comparison study, PET/CT scan 05/03/2024 CTDI: vol (mGy) : 6.54 DLP: (mGycm): 404 CLINICAL HISTORY: No complaints at this time, follow-up of a right lower lobe pulmonary nodule which was mildly positive PET scan Technique: Multiple axial images of the chest, abdomen and pelvis with intravenous contrast, 3.0 mm slice thickness. Images obtained post intravenous injection Isovue 370 60 cc. 2-D sagittal and coronal reconstructions. Low dose protocols were performed. One or more of the following dose reduction techniques were used; automated exposure control, adjustment of the mA and/or KV according to patient size, use of iterative reconstruction technique. 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 Both of these findings are stable and unchanged. The nodule previously seen in the superior segment right lower lobe was actually a somewhat nodular but patchy area of consolidation, and it has completely disappeared. There is no abnormality in this area at all. There is a tiny area of pleural thickening seen farther laterally in the right midlung of no concern. The remainder both lungs are clear In the abdomen all visible organs appear normal. The small and large bowel appear all right, the patient's colon is completely filled with fecal material from cecum down to the rectum Abdominal aorta is severely tortuous but all of the major branches of the aorta show no evidence of any stenosis. Again noted in the patient's lumbar spine is very significant rotatory scoliosis with convexity to the right with numerous levels of very marked degenerative disc space narrowing and vacuum phenomena and very prominent degenerative osteophytes on the anterior and left lateral margin of the lumbar spine. IMPRESSION: 1. The nodular infiltrate seen previously in the superior segment left lower lobe is completely resolved and is no longer identifiable at all. Hence it had related to an inflammatory infiltrate/pneumonia which is cleared. 2. There is a 4 cm aneurysm in the a sending thoracic aorta unchanged. 3. 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
== END | disposition home or self-care (01) ==
LOC: SCAT 09:35
PROVIDERS: PCP Nurse Practitioner Family; Referring Provider Internal Medicine Hematology & Oncology; Visit Provider Internal Medicine Hematology & Oncology
DX: I71.21 Aneurysm of the ascending aorta, without rupture (principal); M41.87 Other forms of scoliosis, lumbosacral region; M51.370 Other intervertebral disc degeneration, lumbosacral region with discogenic back pain only; C34.90 Malignant neoplasm of unspecified part of unspecified bronchus or lung
CPT/HCPCS: 71260; 74177; A4649; Q9967